=== PATIENT | male | born 1970 | race Caucasian/White ===

== ENCOUNTER 2018-06-23 13:27 | Observation (INO) | payer SELFPAY ==
[2018-06-23] VITALS (7 sets, daily range): BP systolic 111–152; BP diastolic 70–97; PULSE 100–108; TEMP 97.7–98.3
[~2018-06-23] VITALS: Ht 167.6 cm; Wt 111.8 kg
[2018-06-23] MEDS ORDERED: ZOFRAN8 MG PO (20:09)
[2018-06-23] MEDS ORDERED: COLACE 100100 MG/CAP PO (20:10)
[2018-06-23] MEDS ORDERED: TYLENOL 500MG500 MG PO (20:10)
[2018-06-23] MEDS ORDERED: OXY IR5 MG PO (20:11)
--- NOTE | 2018-06-23 20:45 | NUR ---
Received from [facility]-- VSS, pt on 3L/nc, will be slowly weaning off o2 -- no fever- Left wrist dressing dry and intact- vannessa on-- elevated- arm in sling- good cms to fingers family with pt-- no one speaks moroccan- using [employer] finger buffs to assess, pt states slight pain /.
--- NOTE | 2018-06-23 21:45 | NUR ---
Eating pudding/crackers- no nausea,, o2 off now, sats 96%, continues with elevated left hand/wrist- vannessa dry and intact- good CMS. Lung sounds clear- good C&DB, UP to bathroom- steady on feet - voiding without problems. States ready to go home
--- NOTE | 2018-06-23 22:30 | NUR ---
Vitals have remained stable- no problems will call PA for pain med orders during the night
--- NOTE | 2018-06-23 22:55 | NUR ---
[place] given per order-- will send home with the home pack of 4 [place] pills - IV removed. Discharge instructions given - pt only vietnamese speaking- understands about elevation of left wrist/ice-- pain med schedule- When talked to PA-- states he will be calling this pt tomorrow to follow through with return appointment-
== END 2018-06-23 23:30 | disposition home or self-care (01) ==
LOC: COL.ER 13:27 → SURG 17:51
PROVIDERS: ADMIT Orthopaedic Surgery
DX: S52.572A Other intraarticular fracture of lower end of left radius, initial encounter for closed fracture (principal); S52.612A Displaced fracture of left ulna styloid process, initial encounter for closed fracture; W17.89XA Other fall from one level to another, initial encounter; Y93.H3 Activity, building and construction; Y92.61 Building [any] under construction as the place of occurrence of the external cause
CPT/HCPCS: C1713; J0690; J2250; J2704; J2795; J3010; J7120